=== PATIENT | female | born 1930 | race Caucasian/White ===

== ENCOUNTER 2018-03-24 14:58 | Inpatient (IN) | payer OTHER ==
[2018-03-24] MEDS ORDERED: SODIUM CHLORIDE 2,177 ML IV ONE (15:35)
[2018-03-24 16:41] LABS: BASO % 0.7 % (0-2.0); HEMATOCRIT 34.9 % (32.4-45.2); HEMOGLOBIN 11.8 GM/dL (10.7-15.3); LYMPH % 11.5 % (8-40); MCH 29.1 pg (25.7-33.7); MCHC 33.8 g/dl (32.0-36.0); MEAN CELL VOLUME 86.1 fl (80-96); MEAN PLT VOLUME 9.6 fl (7.5-11.1); MONO % 8.7 % (3.8-10.2); NEUT % 76.1 % (42.8-82.8); PLATELET COUNT 327 K/MM3 (134-434); RBC 4.05 M/mm3 (3.60-5.2); WHITE BLOOD COUNT 11.9 K/mm3 (4.0-10.0)
--- NOTE | 2018-03-24 16:45 | PDOC ---
History of Present Illness - General Chief Complaint: Nasal Bleeding Stated Complaint: Nasal Bleeding Time Seen by Provider: 03/24/18 15:25 - History of Present Illness Initial Comments: 03/24/18 16:36 87 yo F with h/o HTN, HLD, DM, ACS, R femoral neck fracture, DVT LE on AC, BIBA with epistaxis from [facility]. Patient with epistaxis intermittently beginning today at 0900 AM. Denies trauma to nose. Blood from both nose, with slight clotting, and down back of throat/mouth. No identifiable triggers. Not alleviated with manual pressure. Per patient daughter and son at bedside. Patient currently undergoing rehabilitation s/p mechanical fall with right femoral neck fracture x 1 month ago. S/p surgical right hip repair x 1 week at OSH. Patient recently started new AC, but does not recall name x 1 week. No home O2 requirements. Son reports patient hypoxic while in hospital x 2 weeks. Discontinued from Warfarin x 6 months ago. Started on Xarelto (09/2017) .On Xarelto 20 mg QD. Patient denies cough, wheezing, hemoptysis, PND, orthopnea, leg pain, N/V, F,C, CP, urinary complaints, abdominal pain, diarrhea, constipation, lightheadedness , weakness, sensory changes. PMHx: as noted above. Denies h/o PE. ROS: as noted SHx: Denies Etoh, IVDA, tobacco. Allergies: NKDA Past History - Past Medical History Allergies/Adverse Reactions: Allergies Allergy/AdvReac Type Severity Reaction Status Date / Time No Known Allergies Allergy Verified 03/24/18 15:24 Home Medications: Ambulatory Orders Acetaminophen [Tylenol] 650 mg PO Q6H PRN 03/24/18 Amlodipine Besylate [Norvasc -] 10 mg PO DAILY 03/24/18 Ascorbic Acid [Vitamin C] 500 mg PO DAILY 03/24/18 Calcium Carbonate/Vitamin D3 [Calcium 500 + Vit D 200 Caplet] 1 each PO DAILY Docusate Sodium [Colace] 300 mg PO HS 03/24/18 Losartan Potassium [Cozaar] 100 mg PO DAILY 03/24/18 Magnesium Hydroxide [Milk of Magnesia] 302 ml PO DAILY PRN 03/24/18 Multivitamins [Tab-A-Vit -] 1 tab PO DAILY 03/24/18 Oxycodone HCl/Acetaminophen [Percocet 5-325 mg Tablet] 1 tab PO Q4H PRN Rivaroxaban [Xarelto -] 20 mg PO DAILY 03/24/18 Sennosides [Senna] 8.6 mg PO HS 03/24/18 Silver Sulfadiazine 1% Top Cr [Silvadene -] 1 applic TP BID 03/24/18 Simvastatin [Zocor -] 20 mg PO HS 03/24/18 Tramadol HCl 50 mg PO Q6H PRN 03/24/18 Zinc Sulfate [Zinc-220] 220 mg PO DAILY 03/24/18 metFORMIN HCL [Glucophage -] 850 mg PO DAILY 03/24/18 COPD: No Diabetes: Yes HTN: Yes Hypercholesterolemia: Yes - Suicide/Smoking/Psychosocial Hx Smoking History: Never smoked Review of Systems - Review of Systems Comments:: 03/24/18 16:46 GENERAL/CONSTITUTIONAL: No fever or chills. No weakness. HEAD, EYES, EARS, NOSE AND THROAT: + Epistaxis. No change in vision. No ear pain or discharge. No sore throat. CARDIOVASCULAR: + SOB. No chest pain. RESPIRATORY: No cough, wheezing, or hemoptysis. GASTROINTESTINAL: No nausea, vomiting, diarrhea or constipation. GENITOURINARY: No dysuria, frequency, or change in urination. MUSCULOSKELETAL: No joint or muscle swelling or pain. No neck or back pain. SKIN: No rash NEUROLOGIC: No headache, vertigo, loss of consciousness, or change in strength/ sensation. ENDOCRINE: No increased thirst. No abnormal weight change HEMATOLOGIC/LYMPHATIC: No anemia, easy bleeding, or history of blood clots. ALLERGIC/IMMUNOLOGIC: No hives or skin allergy. *Physical Exam - Vital Signs Last Vital Signs Temp Pulse Resp BP Pulse Ox 98.0 F 115 H 20 98/59 L 90 L 03/24/18 15:21 03/24/18 15:21 03/24/18 15:21 03/24/18 15:21 03/24/18 15:21 - Physical Exam Comments: 03/24/18 16:49 GENERAL: Awake, alert, and fully oriented, in no acute distress HEAD: No signs of trauma, normocephalic, atraumatic EYES: PERRLA, EOMI, sclera anicteric, conjunctiva clear ENT: + Active blood BL nares, and post. orppharynx. Absent septal deviation, or hematoma. Auricles normal inspection, hearing grossly normal, nares patent, oropharynx clear without exudates. Moist mucosa NECK: Normal ROM, supple, no lymphadenopathy, JVD, or masses LUNGS:+ Diminished lung sound BL LL bases. No distress, speaks full sentences. + scant exp wheezing. HEART: Regular rate and rhythm, normal S1 and S2, no murmurs, rubs or gallops, peripheral pulses normal and equal bilaterally. ABDOMEN: Soft, nontender, normoactive bowel sounds. No guarding, no rebound. No masses EXTREMITIES : + BL LE 2 + pitting edema. Normal inspection, Normal range of motion, no edema. No clubbing or cyanosis. SKIN: Warm, Dry, normal turgor, no rashes or lesions noted ED Treatment Course - LABORATORY CBC & Chemistry Diagram: 03/24/18 16:28 03/24/18 16:28 Medical Decision Making - Medical Decision Making 03/24/18 16:45 87 yo F with h/o HTN, HLD, DM, ACS, DVT LE on AC, BIBA with epistaxis from [facility]. HR 115, BP 98/59, O2 90 L 5 L NC, AF. A&Ox3. + Diminished lung sounds BL Lung bases. /AR r/o. R/o PNA. R/o PTX. Patient high risk PE based on Weils criteria immobilization/surgery/hypoxia,tachycardia/h/o DVT. Will consider CHF, COPD. Assess for electrolyte abnml, metabolic, and toxic derangement, acid-base disturbances, infection. ED Course: 03/24/18 16:50 NS 20 cc/kg Patient SBP improved 105/54 ( MAP 67), with HR 90, and O2 99% on 10 L NRB 03/24/18 16:52 H/H: 11.8/34.9 WBC: 11.9 03/24/18 17:08 INR: 2.52 03/24/18 17:14 BUN/Cr: 24/0.8 Trop: Neg Lactic Acid: 3.3 03/24/18 17:15 pH; 7.35, PCO2 47.8 03/24/18 17:32 CTA CHEST: No evidence of PE. Unremarkable Admit to Medicine Dr. Ifudu. Patient endorsed to medicine team. *DC/Admit/Observation/Transfer Diagnosis at time of Disposition: Hypoxia, Sepsis - Discharge Dispostion Decision to Admit order: Yes - Referrals Referrals: Lisa Camara [Primary Care Provider] - - Patient Instructions - Post Discharge Activity
[2018-03-24 16:52] LABS: INR 2.52 (0.83-1.09)
[2018-03-24 16:57] LABS: VENOUS PC02 47.8 mmHg (38-52); VENOUS PH 7.35 (7.32-7.42); VENOUS PO2 38.6 mmHg (28-48)
[2018-03-24 17:03] LABS: ALBUMIN 2.9 g/dl (3.4-5.0); ALK PHOS 72 U/L (45-117); ANION GAP 10 MMOL/L (8-16); BILIRUBIN,TOTAL 1.2 mg/dL (0.2-1); BLOOD UREA NITROGEN 24 mg/dL (7-18); CALCIUM 8.1 mg/dL (8.5-10.1); CHLORIDE 99 mmol/L (98-107); CO2 27 mmol/L (21-32); CREATININE 0.8 mg/dL (0.55-1.3); GLUCOSE,RANDOM 131 mg/dL (74-106); POTASSIUM 4.1 mmol/L (3.5-5.1); SGOT/AST 24 U/L (15-37); SGPT/ALT 38 U/L (13-61); SODIUM 137 mmol/L (136-145); TOT PROT 6.1 g/dl (6.4-8.2)
[2018-03-24] MEDS ORDERED: PIPERACILLIN/TAZOB 4.5 GM 4.5 GM in DEXTROSE 5%-WATER 100 ML IVPB ONE (18:56)
--- NOTE | 2018-03-24 19:11 | PDOC ---
Attending Attestation - Resident Resident Name: Jhon Lowe - ED Attending Attestation I have performed the following: I have examined & evaluated the patient, The case was reviewed & discussed with the resident, I agree w/resident's findings & plan, Exceptions are as noted - HPI HPI: 03/24/18 19:12 The patient is a 87 year old female, with a significant past medical history of hypertension, diabetes, hyperlipidemia, DVTs on Anticoagulation, and Right Hip Fx s/p repair about 1 week ago, who presents to the emergency department with epistaxis since 9am. She was notably tachycardic, hypotensive and hypoxic in route as per EMS. The patient denies home O2 requirements, but reports recent hypoxia on admission to [facility]. She states she has been in a rehab for about a week since her R Hip surgery. She also reportedly has been taking Xarelto since September, discontinued for surgery, and restarted on a new anticoagulation which the family does not know the name. Per [facility] records, she is on xarelto. The patient denies chest pain, shortness of breath, headache and dizziness. The patient denies fever, chills, nausea, vomit, diarrhea and constipation. The patient denies dysuria, frequency, urgency and hematuria. - Physicial Exam PE: 03/25/18 09:36 agree with resident exam - Medical Decision Making 03/24/18 19:49 87yo F with MMP including recent hip surgery, is on xarelto presents to the ED with epistaxis, also found to be hypotenisve, tachycardic, hypoxic. Vital abnormalities could be 2/2 epistaxis, but given recent surgery could also represent infection. Epistaxis is intermittent while here in the ED, made device for compression but family removed, stating they will hold pressure for the patient. Pt covered empirically with IV abx. Given gap in AC for recent procedure, CTA obtained which was negative. At this point, pt admitted for further mgmt. Case discussed in detail with admitting physician including history, physical exam and ancillary studies. Admitting physician has assumed care for the patient, will follow all pending diagnostics and will complete the evaluation and treatment.
[2018-03-24] MEDS ORDERED: VANCOMYCIN 1,000 MG in DEXTROSE 5%-WATER - 250 ML IVPB ONE (19:28)
--- NOTE | 2018-03-24 19:54 | PN ---
Teaching Attending Note Name of Resident: Zaid Chandler ATTENDING PHYSICIAN STATEMENT I saw and evaluated the patient. I reviewed the resident's note and discussed the case with the resident. I agree with the resident's findings and plan as documented. SUBJECTIVE: Patient is an 87 year old woman with history of HTN, HLD, DM, ACS, Rt femoral neck fracture, DVT LE on Xarelto who from [facility] with epistaxis intermittently beginning today at 0900 AM. Denies trauma to nose. Blood from both nostrils with slight clotting, and down back of throat/mouth. No identifiable triggers. Not alleviated with manual pressure. Per patient daughter and son at bedside. Patient currently undergoing rehabilitation after mechanical fall with right femoral neck fracture one month ago. Had surgical right hip repair x 1 week at OSH. Son reports patient hypoxic while in hospital x 2 weeks. Discontinued from Warfarin x 6 months ago. Started on Xarelto (2017). On Xarelto 20 mg QD. OBJECTIVE: Alert and weak Vital Signs Period Temp Pulse Resp BP Sys/Khan Pulse Ox Last 24 Hr 98.0 F 115 20 98/59 90 HEENT: No Jaundice, eye redness or discharge, PERRLA, EOMI. Normocephalic, atraumatic. External ears are normal and hearing is grossly intact. Nose packed. No nasal discharge or active bleeding. Neck: Supple, nontender. No palpable adenopathy or thyromegaly. No JVD Chest: Good effort. Clear to auscultation and percussion. Heart: Regular. No S3, rub or murmur Abdomen: Distended, soft, nontender and no HSM. Tympanic. No rebound or guarding. Normoactive bowel sounds. Ext: Peripheral pulses intact. No leg edema. Skin: Warm and dry. No petechiae, rash or ecchymosis. Neuro: Alert. Oriented to person and place. Frail and weak. CN 2-12 grossly intact. Sensation grossly intact in all four extremities and DTR are symmetric. Current Medications Generic Name Dose Route Start Last Admin Trade Name Freq PRN Reason Stop Dose Admin Vancomycin HCl 1,000 mg/ 250 mls @ 250 mls/hr 03/24/18 19:28 Dextrose IVPB 03/24/18 20:27 ONCE ONE Protocol Home Medications Medication Instructions Recorded Acetaminophen [Tylenol] 650 mg PO Q6H PRN 03/24/18 Amlodipine Besylate [Norvasc -] 10 mg PO DAILY 03/24/18 Ascorbic Acid [Vitamin C] 500 mg PO DAILY 03/24/18 Calcium Carbonate/Vitamin D3 1 each PO DAILY 03/24/18 [Calcium 500 + Vit D 200 Caplet] Docusate Sodium [Colace] 300 mg PO HS 03/24/18 Losartan Potassium [Cozaar] 100 mg PO DAILY 03/24/18 Magnesium Hydroxide [Milk of 302 ml PO DAILY PRN 03/24/18 Magnesia] Multivitamins [Tab-A-Vit -] 1 tab PO DAILY 03/24/18 Oxycodone HCl/Acetaminophen 1 tab PO Q4H PRN 03/24/18 [Percocet 5-325 mg Tablet] Rivaroxaban [Xarelto -] 20 mg PO DAILY 03/24/18 Sennosides [Senna] 8.6 mg PO HS 03/24/18 Silver Sulfadiazine 1% Top Cr 1 applic TP BID 03/24/18 [Silvadene -] Simvastatin [Zocor -] 20 mg PO HS 03/24/18 Tramadol HCl 50 mg PO Q6H PRN 03/24/18 Zinc Sulfate [Zinc-220] 220 mg PO DAILY 03/24/18 metFORMIN HCL [Glucophage -] 850 mg PO DAILY 03/24/18 Abnormal Lab Results 03/24/18 03/24/18 03/24/18 16:28 16:28 16:28 WBC 11.9 H Absolute Neuts (auto) 9.1 H PT with INR 30.00 H INR 2.52 H Mixed VBG HCO3 BUN 24 H Random Glucose 131 H Lactic Acid Calcium 8.1 L Total Bilirubin 1.2 H Total Protein 6.1 L Albumin 2.9 L 03/24/18 03/24/18 16:28 16:28 WBC Absolute Neuts (auto) PT with INR INR Mixed VBG HCO3 25.9 H BUN Random Glucose Lactic Acid 3.3 H* Calcium Total Bilirubin Total Protein Albumin ASSESSMENT AND PLAN: 1. Sepsis/Epistaxis - Though lactic acidosis may be partly due to Metformin - this and other clinical features suggest sepsis of unclear source. Initial hypoxia and hypotension responded to therapy. No embolism seen on CTPA. She got IV vancomycin in the ER. Will do sepsis work up - UA, BC, CXR and get abdominal sonogram to evaluate abdominal distension. Stop metformin, hydrate with IV D5/ LR and trend lactic acid. Will decide on adding zosyn once sepsis work up is done. Consult ENT for epistaxis and hold Xarelto. Reevaluate nasal packing tomorrow. 2. Hypoalbuminemia - Possibly due to combined effects of malnutrition and inflammation associated with comorbid chronic conditions. Will ensure adequate dietary protein intake and also consult blast furnace helper. 3. DM - For now, we will hold the home diabetes drugs and implement sliding scale insulin regimen. Provide comprehensive diabetes care with patient teaching and counseling about the importance of euglycemia, eye care and foot care. 4. DVT prophylaxis - SCD, TEDs. Xarelto on hold. 5. Advance directives - Full code
[2018-03-24] MEDS ORDERED: PIPERACILLIN/TAZOB 4.5 GM 4.5 GM/100 ML BAG IVPB ONE (20:13)
[2018-03-24] MEDS ORDERED: VANCOMYCIN 1 GRAM (PRE-DOCKED) 1,000 MG/250 ML BAG IVPB ONE (20:14)
--- NOTE | 2018-03-24 21:37 | HP ---
CHIEF COMPLAINT: epistaxis, dyspnea PCP: Lisa Camara HISTORY OF PRESENT ILLNESS: Patient is an 87 y/o F w/ PMHx HTN, HLD, DM, ACS, R femoral neck Fx 1 week s/p surgical repair, DVT on AC, was BIBEMS from [facility] where she was recovering from hip fracture surgery c/o of copious b/l epistaxis filling 2 quart-sized plastic bags with blood, additionally had episode of vomiting blood. Epistaxis was spontaneous and not associated with any trauma. Only manual pressure attempted to control bleeding and did not succeed. Of note, Pt switched from long-term use of warfarin to Xarelto September 2017, AC was held prior to surgery, per Pt's family Pt was started on new unknown AC following surgery but records from [facility] state Xarelto has been used throughout. Pt denies cough , wheezing, hemoptysis, PND, orthopnea, leg pain, N/V, F,C, CP, urinary complaints, abdominal pain, diarrhea, constipation, lightheadedness, weakness, sensory changes.On presentation was tachycardic 110s-120s, hypotensive, and desaturing to mid-70% on RA. Additionally had elevated lactate to 3.3, WBC slightly elevated to 11.9, afebrile throughout, INR 2.52. In ED, 2L fluid bolus corrected hypotension, saturation was brought to mid-90s with nasal cannula and non-rebreather, Pt is currently on NC. Hemostasis through manual pressure was achieved in ED. Empiric vancomycin and zosyn were given. CTA chest showed no PE or acute pathology but was noted to be a limited study. EKG was unremarkable. UA , UCx, BCx, CXR pending. ER course was notable for: (1) lactate 3.3, INR 2.52 (2) hypotension (3) hypoxia Recent Travel: PAST MEDICAL HISTORY: As per HPI PAST SURGICAL HISTORY: As per HPI Social History: Smoking: Alcohol: Drugs: Family History: Allergies No Known Allergies Allergy (Verified 03/24/18 15:24) HOME MEDICATIONS: Home Medications Medication Instructions Recorded Acetaminophen [Tylenol] 650 mg PO Q6H PRN 03/24/18 Amlodipine Besylate [Norvasc -] 10 mg PO DAILY 03/24/18 Ascorbic Acid [Vitamin C] 500 mg PO DAILY 03/24/18 Calcium Carbonate/Vitamin D3 1 each PO DAILY 03/24/18 [Calcium 500 + Vit D 200 Caplet] Docusate Sodium [Colace] 300 mg PO HS 03/24/18 Losartan Potassium [Cozaar] 100 mg PO DAILY 03/24/18 Magnesium Hydroxide [Milk of 302 ml PO DAILY PRN 03/24/18 Magnesia] Multivitamins [Tab-A-Vit -] 1 tab PO DAILY 03/24/18 Oxycodone HCl/Acetaminophen 1 tab PO Q4H PRN 03/24/18 [Percocet 5-325 mg Tablet] Rivaroxaban [Xarelto -] 20 mg PO DAILY 03/24/18 Sennosides [Senna] 8.6 mg PO HS 03/24/18 Silver Sulfadiazine 1% Top Cr 1 applic TP BID 03/24/18 [Silvadene -] Simvastatin [Zocor -] 20 mg PO HS 03/24/18 Tramadol HCl 50 mg PO Q6H PRN 03/24/18 Zinc Sulfate [Zinc-220] 220 mg PO DAILY 03/24/18 metFORMIN HCL [Glucophage -] 850 mg PO DAILY 03/24/18 REVIEW OF SYSTEMS As per HPI PHYSICAL EXAMINATION Vital Signs - 24 hr 03/24/18 15:21 Temperature 98.0 F Pulse Rate 115 H Respiratory 20 Rate Blood Pressure 98/59 L O2 Sat by Pulse 90 L Oximetry (%) GENERAL: Awake, alert, oriented only to name (family states this is baseline). HEAD: NC/AT EYES: PERRLA, scleral icterus, limited compliance otherwise EARS, NOSE, THROAT: no active bleeding, numerous clots throughout nares b/l and posterior oropharynx. MMM. NECK: No JVD, no LAD LUNGS: crackles at lung bases b/l HEART: RRR no m/r/g ABDOMEN: distant bs, soft, nontender, notably distended (of recent onset per family), tympanitic EXTREMITIES: 2+ pulses, warm, well-perfused. No cyanosis. No clubbing. 2+ pitting edema b/l [place]. NEUROLOGICAL: limited compliance, no gross motor, sensor, or CN deficits PSYCHIATRIC: pleasant, confused Laboratory Results - last 24 hr 03/24/18 03/24/18 03/24/18 16:28 16:28 16:28 WBC 11.9 H RBC 4.05 Hgb 11.8 Hct 34.9 MCV 86.1 MCH 29.1 MCHC 33.8 RDW 15.0 Plt Count 327 MPV 9.6 Absolute Neuts (auto) 9.1 H Neutrophils % 76.1 Lymphocytes % 11.5 Monocytes % 8.7 Eosinophils % 3.0 Basophils % 0.7 Nucleated RBC % 0 PT with INR 30.00 H INR 2.52 H VBG pH POC VBG pCO2 POC VBG pO2 Mixed VBG HCO3 Sodium 137 Potassium 4.1 Chloride 99 Carbon Dioxide 27 Anion Gap 10 BUN 24 H Creatinine 0.8 Creat Clearance w eGFR > 60 Random Glucose 131 H Lactic Acid Calcium 8.1 L Total Bilirubin 1.2 H AST 24 ALT 38 Alkaline Phosphatase 72 Creatine Kinase Troponin I Total Protein 6.1 L Albumin 2.9 L Blood Type Antibody Screen 03/24/18 03/24/18 03/24/18 16:28 16:28 16:28 WBC RBC Hgb Hct MCV MCH MCHC RDW Plt Count MPV Absolute Neuts (auto) Neutrophils % Lymphocytes % Monocytes % Eosinophils % Basophils % Nucleated RBC % PT with INR INR VBG pH 7.35 POC VBG pCO2 47.8 POC VBG pO2 38.6 Mixed VBG HCO3 25.9 H Sodium Potassium Chloride Carbon Dioxide Anion Gap BUN Creatinine Creat Clearance w eGFR Random Glucose Lactic Acid 3.3 H* Calcium Total Bilirubin AST ALT Alkaline Phosphatase Creatine Kinase Troponin I Total Protein Albumin Blood Type O NEGATIVE Antibody Screen Negative 03/24/18 16:28 WBC RBC Hgb Hct MCV MCH MCHC RDW Plt Count MPV Absolute Neuts (auto) Neutrophils % Lymphocytes % Monocytes % Eosinophils % Basophils % Nucleated RBC % PT with INR INR VBG pH POC VBG pCO2 POC VBG pO2 Mixed VBG HCO3 Sodium Potassium Chloride Carbon Dioxide Anion Gap BUN Creatinine Creat Clearance w eGFR Random Glucose Lactic Acid Calcium Total Bilirubin AST ALT Alkaline Phosphatase Creatine Kinase 56 Troponin I < 0.02 Total Protein Albumin Blood Type Antibody Screen ASSESSMENT/PLAN: 87 y/o F w/ PMHx HTN, HLD, DM, ACS, R femoral neck Fx 1 week s/p surgical repair , DVT on AC p/w 1 day h/o copious epistaxis, additionally developed dyspnea, hypoxia, hypotension on presentation. #hypoxia/hypotension -PE vs sepsis -CTA negative -cont NC to maintain O2 sat >92 -consider V/Q scan given PE risk factors and limitations of CTA -troponin negative -currently hemodynamically stable, further fluid boluses as needed -initial troponin negative, will repeat x 2, EKG unremarkable -CXR pending -UCx, UA, BCx pending -empiric vanc/zosyn given #lactic acidosis -may be 2/2 metformin -repeat lactate pending #HTN -hold anti-hypertensives #DM -hold metformin -BGM ACHS -SSI #FEN -no IVF -monitor and replete -NPO #PPx -DVT: Xarelto -GI: not indicated #code -full #dispo -admit to med/surg Visit type - Emergency Visit Emergency Visit: Yes Care time: The patient presented to the Emergency Department on the above date and was hospitalized for further evaluation of their emergent condition. - New Patient This patient is new to me today: Yes Date on this admission: 03/24/18 - Critical Care Critical Care patient: No
[2018-03-24] MEDS ORDERED: ONDANSETRON 4 MG/2 ML VIAL IVPB ONE (22:03)
[2018-03-24 22:52] LABS: MAGNESIUM 1.7 mg/dL (1.8-2.4); PHOSPHOROUS 3.2 mg/dL (2.5-4.9)
[2018-03-24] MEDS ORDERED: MAGNESIUM SULF 50% (8.12 MEQ/2 ML-1 GM VIAL) IVPB ONE (23:15)
[2018-03-24] MEDS ORDERED: ONDANSETRON 4 MG/2 ML VIAL ONE (23:16)
[2018-03-24] MEDS ORDERED: INSULIN (NOVOLOG) ASPART 100 UNITS/ML 10ML VIAL ONE (23:17)
[2018-03-24 23:21] LABS: URINE APPEARANCE CLEAR; URINE BILIRUBIN NEGATIVE (<2.0 mg/dL); URINE COLOR YELLOW; URINE GLUCOSE (UA) NEGATIVE (NEGATIVE); URINE KETONE NEGATIVE (NEGATIVE); URINE LEUK ESTERASE NEGATIVE (NEGATIVE); URINE NITRITE NEGATIVE (NEGATIVE); URINE PROTEIN NEGATIVE (NEGATIVE); URINE UROBILINOGEN NEGATIVE mg/dL (0.2-1.0)
[2018-03-24] MEDS: INSULIN SLIDING SCALE (NOVOLOG) 1 VIAL SQ SCH (23:22)
[2018-03-24] MEDS ORDERED: MAGNESIUM SULF 50% (8.12 MEQ/2 ML-1 GM VIAL) ONE (23:27)
[2018-03-24] MEDS: DEXTROSE 5%-LACTATED RINGERS 1,000 ML IV SCH (23:37)
[2018-03-25] MEDS ORDERED: ACETAMINOPHEN 325 MG TABLET (FP) PO ONE (04:22)
[2018-03-25] MEDS ORDERED: ACETAMINOPHEN 1000 MG/100 ML VIAL (NON FORMULARY) IVPB ONE (04:46)
[2018-03-25 06:43] VITALS: BMI 29.8
[2018-03-25] MEDS: INSULIN SLIDING SCALE (NOVOLOG) 1 VIAL SQ SCH ×4 (07:00→21:30)
[2018-03-25 07:36] LABS: BASO % 0.6 % (0-2.0); EOS % 3.1 % (0-4.5); HEMOGLOBIN 8.1 GM/dL (10.7-15.3); LYMPH % 16.9 % (8-40); MCH 27.9 pg (25.7-33.7); MCHC 32.4 g/dl (32.0-36.0); MEAN CELL VOLUME 86.3 fl (80-96); MONO % 11.2 % (3.8-10.2); NEUT % 68.2 % (42.8-82.8); PLATELET COUNT 215 K/MM3 (134-434); RBC 2.89 M/mm3 (3.60-5.2); RDW 14.6 % (11.6-15.6); WHITE BLOOD COUNT 9.2 K/mm3 (4.0-10.0)
[2018-03-25 08:48] LABS: BLOOD UREA NITROGEN 27 mg/dL (7-18); CHLORIDE 104 mmol/L (98-107); CREATININE 0.5 mg/dL (0.55-1.3); GLUCOSE,RANDOM 115 mg/dL (74-106); SODIUM 139 mmol/L (136-145)
[2018-03-25 08:49] LABS: ALBUMIN 2.2 g/dl (3.4-5.0); ALK PHOS 47 U/L (45-117); ANION GAP 8 MMOL/L (8-16); BILIRUBIN,TOTAL 0.8 mg/dL (0.2-1); CALCIUM 7.8 mg/dL (8.5-10.1); CO2 27 mmol/L (21-32); MAGNESIUM 2.2 mg/dL (1.8-2.4); PHOSPHOROUS 2.8 mg/dL (2.5-4.9); SGOT/AST 18 U/L (15-37); SGPT/ALT 27 U/L (13-61); TOT PROT 4.6 g/dl (6.4-8.2)
[2018-03-25] MEDS ORDERED: RIVAROXABAN 20 MG TABLET PO SCH ×2 (10:00→18:00)
--- NOTE | 2018-03-25 11:43 | PN ---
Progress Note, Physician Chief Complaint: daughter at bedside events noted, chart reviewed Pt has difficulty swallowing due to rhino-rocket no sore throat - Current Medication List Current Medications: Active Medications Dextrose/Lactated Ringer's (D5-Lr -) 1,000 mls @ 50 mls/hr IV ASD[facility] Last Admin: 03/24/18 23:37 Dose: 50 mls/hr Insulin Aspart (Novolog Vial Sliding Scale -) 1 vial SQ ACHS [facility]; Protocol Last Admin: 03/25/18 07:00 Dose: Not Given - Objective Vital Signs: Vital Signs Temperature 98 F 03/25/18 06:03 Pulse Rate 92 H 03/25/18 06:03 Respiratory Rate 20 03/25/18 06:03 Blood Pressure 130/62 03/25/18 06:03 O2 Sat by Pulse Oximetry (%) 97 03/25/18 06:03 Constitutional: Yes: No Distress, Calm HENT: Yes: Other (dried blood in posterior pharynx, rhinorocket) Cardiovascular: Yes: Regular Rate and Rhythm Respiratory: Yes: CTA Bilaterally Gastrointestinal: Yes: Normal Bowel Sounds, Soft. No: Tenderness Extremities: Yes: Other (rt hip-- surgical wound noted-- clean , surrounding skin abrasions) Edema: Yes Edema: RLE: 2+ Neurological: Yes: Alert Labs: CBC, BMP 03/25/18 06:30 03/25/18 06:30 INR, PTT INR 2.52 (0.83-1.09) H 03/24/18 16:28 Problem List - Problems (1) Epistaxis Code(s): R04.0 - EPISTAXIS (2) Hip fracture Code(s): S72.009A - FRACTURE OF UNSP PART OF NECK OF UNSP FEMUR, INIT Qualifiers: Laterality: right (3) Hypoxia Code(s): R09.02 - HYPOXEMIA Assessment/Plan PLAN spontaneous epistaxis hold off xarelto for now ENT eval iv fluids Check CBC Swallow eval check sono legs may need SCD for dvt prophylaxis
--- NOTE | 2018-03-25 15:42 | EKG ---
Test Reason : Blood Pressure : / mmHG Vent. Rate : 097 BPM Atrial Rate : 097 BPM P-R Int : 168 ms QRS Dur : 084 ms QT Int : 344 ms P-R-T Axes : 065 052 049 degrees QTc Int : 436 ms NORMAL SINUS RHYTHM MINIMAL VOLTAGE CRITERIA FOR LVH, MAY BE NORMAL VARIANT BORDERLINE ECG NO PREVIOUS ECGS AVAILABLE Confirmed by JULIO BELTRAN MD ([id number]) on 03/25/2018 3:42:14 PM Referred By: Confirmed By:JULIO BELTRAN MD
--- NOTE | 2018-03-25 17:40 | CONSULT ---
Admitting History and Physical - Primary Care Physician PCP: Aleena Kirby - Admission History of Present Illness: 87 y/o F w/ PMHx HTN, HLD, DM, ACS, R femoral neck Fx 1 week s/p surgical repair , DVT on AC p/w 1 day h/o copious epistaxis, additionally developed dyspnea, hypoxia, hypotension on presentation Rhino-rocket placed in nasal cavity to control bleeding. Since it was placed, pt c/o difficulty swallowing, and speaking, with tongue carriage anterior. Rhino rocket in visible in posterior timothy-pharynx. Pt is on a non- rebreather.There are secretions in posterior pharynx, lateral to rhino-rocket.. She is oriented, speech is not intelligible with tongue in protruded position. Selected Entries 03/25/18 03/25/18 03/25/18 04:03 06:03 16:03 Lunch NPO Temperature 98.6 F 98 F 98.4 F Laboratory Tests 03/24/18 03/25/18 16:28 06:30 WBC 11.9 H 9.2 History Source: Patient, Family Member, Medical Record Limitations to Obtaining History: Clinical Condition - Smoking History Smoking history: Never smoked History - Admission Reason For Visit: HYPOXIA,SEPSIS - Diagnostics X-ray: Report Reviewed - General Mental Status: Alert and Oriented, Awake and Alert, Able to Follow Commands Attention: Intact Ability to Follow Directions: Good Head/Neck Control: WFL - Hearing Hearing: Impaired, Right Ear Hearing Aide: No Speech Evaluation - Communication Primary Language: MACEDONIAN - Speech Production Intelligibility: Yes: Severely Impaired - Swallow Evaluation/Bedside Assessment Current Nutritional Intake: NPO Oral Secretions: Yes: WFL (secretions in posterior pharynx.) Facial Symmetry at Rest: Symmetrical Lingual Movement: Symmetric Lingual Movement Characteristics: Normal Recommendations - Speech Evaluation, Impression/Plan Impression: Unintelligible speech, with tongue protruded, unable to swallow. Oriented. Rhinorocket visible in posterior timothy pharynx. On non rebreather. Per nursing, pt is stable. Pending ENT consult.No bleeding observed at this time. - Disposition Discharge to: To be Determined - Dysphagia Impressions/Plan Swallowing Skills: Impaired (suspect acute, related to position of naso-rocket.) *Silent aspiration: cannot be R/O at bedside Recommendations: ENT Consult (pending), Other (Careful monitoring of pulmonary status/o2 saturation) - Recommendations Diet Consistency: NPO
[2018-03-25] MEDS: BACITRACIN 15 GM TUBE TOPICAL OINTMENT TP SCH (17:59)
--- NOTE | 2018-03-25 19:33 | CON.ENT ---
Consult Consult Specialty:: ENT Referred by:: Dr. Lawrence Reason for Consultation:: epistaxis - History of Present Illness Chief Complaint: nasal bleeding History of Present Illness: 87 yo F s/p recent right hip fracture with surgical repair ~ 1 week ago hx deep vein thrombosis, had been on coumadin then Eliquis yesterday AM developed nasal bleeding left side (was in rehabilitation facility) , bleeding did not stop, pt swallowed a lot of blood then bleeding worsened, vomited blood clots paramedics called, to [facility] ER RhinoRocket nasal packing placed in left nostril Hemoglobin down 11.8 -> 8.1 Hematocrit down 34.9 -> 25.0 anticoagulated, INR and PT elevated (PT 30 seconds, INR 2.52) daughter in law noted pts voice sounds funny and she had problems swallowing. Swallowing evaluation by Vika Guido notes that part of the nasal packing is in pts oropharynx with obstruction. - History Source History Provided By: Patient, Family Member, Medical Record Limitations to Obtaining History: Language Barrier - Past Medical History Cardio/Vascular: Yes: Deep Vein Thrombosis - Smoking History Smoking history: Never smoked Home Medications - Allergies Allergies/Adverse Reactions: Allergies Allergy/AdvReac Type Severity Reaction Status Date / Time No Known Allergies Allergy Verified 03/24/18 15:24 - Home Medications Home Medications: Ambulatory Orders Acetaminophen [Tylenol] 650 mg PO Q6H PRN 03/24/18 Amlodipine Besylate [Norvasc -] 10 mg PO DAILY 03/24/18 Ascorbic Acid [Vitamin C] 500 mg PO DAILY 03/24/18 Calcium Carbonate/Vitamin D3 [Calcium 500 + Vit D 200 Caplet] 1 each PO DAILY Docusate Sodium [Colace] 300 mg PO HS 03/24/18 Losartan Potassium [Cozaar] 100 mg PO DAILY 03/24/18 Magnesium Hydroxide [Milk of Magnesia] 302 ml PO DAILY PRN 03/24/18 Multivitamins [Tab-A-Vit -] 1 tab PO DAILY 03/24/18 Oxycodone HCl/Acetaminophen [Percocet 5-325 mg Tablet] 1 tab PO Q4H PRN Rivaroxaban [Xarelto -] 20 mg PO DAILY 03/24/18 Sennosides [Senna] 8.6 mg PO HS 03/24/18 Silver Sulfadiazine 1% Top Cr [Silvadene -] 1 applic TP BID 03/24/18 Simvastatin [Zocor -] 20 mg PO HS 03/24/18 Tramadol HCl 50 mg PO Q6H PRN 03/24/18 Zinc Sulfate [Zinc-220] 220 mg PO DAILY 03/24/18 metFORMIN HCL [Glucophage -] 850 mg PO DAILY 03/24/18 Physical Exam-ENT Vital Signs: Vital Signs Temperature 98 F 03/25/18 17:00 Pulse Rate 85 03/25/18 17:00 Respiratory Rate 20 03/25/18 17:00 Blood Pressure 136/70 03/25/18 17:00 O2 Sat by Pulse Oximetry (%) 97 03/25/18 06:03 Constitutional: Yes: No Distress, Calm Head: Yes: WNL Face: Yes: WNL Eyes: Yes: WNL Nose: Yes: Other (left nasal packing in place, no active bleeding, no bleeding right nostril) Oral/Pharynx: Yes: Other (+oropharynx obstructed by distal end of inflatable nasal packing. NO bleeding into oropharynx , no stridor or respiratory distress , pt's voice has hot potato quality) Problem List - Problems (1) Epistaxis Assessment/Plan: severe epistaxis, complicated by need for anticoagulation for deep vein thrombosis pt is s/p very recent ORIF right hip fracture bleeding controlled by nasal packing, BUT nasal packing displaced into oropharynx with subsequent effects of partial airway obstruction, change in voice quality and trouble swallowing Bleeding was very active, pt has dropped hemoglobin and hematocrit,, PT and INR elevated Recommend: nasal packing repositioned, deflated, pulled out several centimeters, and re- secured with tape to face re-examination of oropharynx shows no more nasal packing visible in oropharynx. pt more comfortable, daughter in law notes improved voice quality. discussed with pt and her family. Advise continue nasal packing 18-72 hours, or longer if active nasal bleeding noted cover with antibiotics monitor H/H, transfuse as medically indicated close regulation of anticoagulation, needs for DVT but should not be too high because of active nasal bleeding. Thank you for consultation, Mamadou Washington MD FACS Code(s): R04.0 - EPISTAXIS
[2018-03-25] MEDS: DEXTROSE 5%-LACTATED RINGERS 1,000 ML IV SCH (21:57)
[2018-03-26] MEDS: INSULIN SLIDING SCALE (NOVOLOG) 1 VIAL SQ SCH ×4 (06:09→21:04)
[2018-03-26 08:18] LABS: HEMATOCRIT 25.6 % (32.4-45.2); HEMOGLOBIN 8.5 GM/dL (10.7-15.3); MCH 28.7 pg (25.7-33.7); MCHC 33.3 g/dl (32.0-36.0); MEAN CELL VOLUME 86.3 fl (80-96); MEAN PLT VOLUME 8.9 fl (7.5-11.1); PLATELET COUNT 239 K/MM3 (134-434); RBC 2.97 M/mm3 (3.60-5.2); RDW 14.5 % (11.6-15.6); WHITE BLOOD COUNT 7.2 K/mm3 (4.0-10.0)
[2018-03-26 08:34] LABS: ANION GAP 7 MMOL/L (8-16); BLOOD UREA NITROGEN 8 mg/dL (7-18); CALCIUM 7.6 mg/dL (8.5-10.1); CHLORIDE 105 mmol/L (98-107); CO2 31 mmol/L (21-32); CREATININE 0.4 mg/dL (0.55-1.3); GLUCOSE,RANDOM 93 mg/dL (74-106); POTASSIUM 4.3 mmol/L (3.5-5.1); SODIUM 143 mmol/L (136-145)
--- NOTE | 2018-03-26 09:55 | PN ---
Progress Note (short form) - Note Progress Note: Able to speak better and eat as well ENT eval noted Selected Entries 03/26/18 10:00 Temperature 97.3 F L Pulse Rate 62 Respiratory 20 Rate Blood Pressure 165/80 Laboratory Tests 03/26/18 03/26/18 06:30 06:30 WBC 7.2 Hgb 8.5 L Hct 25.6 L Plt Count 239 Sodium 143 Potassium 4.3 Chloride 105 Carbon Dioxide 31 Anion Gap 7 L BUN 8 Creatinine 0.4 L Random Glucose 93 Calcium 7.6 L S1 S2 RRR Nose-- left nostril-- rhinorocket + Lungs clear Abd- soft, NT No edema PLAN Monitor CBC humidified O2 continue with meds hold off anticoagulation on SCD Negative sono legs for DVT CTA chest - negative for PE Problem List - Problems (1) Epistaxis Code(s): R04.0 - EPISTAXIS (2) Hip fracture Code(s): S72.009A - FRACTURE OF UNSP PART OF NECK OF UNSP FEMUR, INIT Qualifiers: Laterality: right (3) Hypoxia Code(s): R09.02 - HYPOXEMIA
[2018-03-26] MEDS: BACITRACIN 15 GM TUBE TOPICAL OINTMENT TP SCH (10:25)
[2018-03-26] MEDS: DEXTROSE 5%-LACTATED RINGERS 1,000 ML IV SCH (19:00)
[2018-03-27] MEDS: INSULIN SLIDING SCALE (NOVOLOG) 1 VIAL SQ SCH ×4 (07:08→22:12)
[2018-03-27 07:53] LABS: HEMATOCRIT 25.3 % (32.4-45.2); HEMOGLOBIN 8.3 GM/dL (10.7-15.3); MCH 28.3 pg (25.7-33.7); MCHC 32.9 g/dl (32.0-36.0); MEAN CELL VOLUME 85.9 fl (80-96); MEAN PLT VOLUME 8.5 fl (7.5-11.1); PLATELET COUNT 223 K/MM3 (134-434); RBC 2.94 M/mm3 (3.60-5.2); RDW 14.2 % (11.6-15.6); WHITE BLOOD COUNT 7.3 K/mm3 (4.0-10.0)
[2018-03-27] MEDS: BACITRACIN 15 GM TUBE TOPICAL OINTMENT TP SCH (11:56)
--- NOTE | 2018-03-27 12:54 | PN ---
Progress Note (short form) - Note Progress Note: has blood oozing from left nostril + Vital Signs - 24 hr 03/26/18 03/26/18 03/26/18 18:05 21:00 22:00 Temperature 97.3 F L 97.8 F Pulse Rate 82 80 Respiratory 20 20 Rate Blood Pressure 131/71 129/71 O2 Sat by Pulse 100 Oximetry (%) 03/27/18 03/27/18 03/27/18 06:25 09:00 15:24 Temperature 98.4 F 98.3 F 98.1 F Pulse Rate 91 H 79 81 Respiratory 20 18 20 Rate Blood Pressure 121/56 L 123/61 126/75 O2 Sat by Pulse 100 Oximetry (%) 03/27/18 17:09 Temperature 98.1 F Pulse Rate 82 Respiratory 18 Rate Blood Pressure 121/54 L O2 Sat by Pulse Oximetry (%) Current Medications Generic Name Dose Route Start Last Admin Trade Name Freq PRN Reason Stop Dose Admin Bacitracin 1 applic 03/25/18 11:45 03/27/18 11:56 Bacitracin - TP 1 applic DAILY AMY Administration Dextrose/Lactated Ringer's 1,000 mls @ 50 mls/hr 03/24/18 22:45 03/26/18 19: 00 D5-Lr - IV 50 mls/hr ASDIR AMY Administration Insulin Aspart 1 vial 03/24/18 22:00 03/27/18 17:05 Novolog Vial Sliding Scale - SQ Not Given ACHS AMY Protocol Laboratory Results - last 24 hr 03/26/18 03/26/18 03/27/18 17:08 20:57 06:40 WBC 7.3 RBC 2.94 L Hgb 8.3 L Hct 25.3 L MCV 85.9 MCH 28.3 MCHC 32.9 RDW 14.2 Plt Count 223 MPV 8.5 POC Glucometer 124 122 03/27/18 03/27/18 07:06 12:11 WBC RBC Hgb Hct MCV MCH MCHC RDW Plt Count MPV POC Glucometer 112 127 S1 S2 RRR Nose-- left nostril-- rhinorocket +clots+ Lungs clear Abd- soft, NT edema+ PLAN Monitor CBC humidified O2 continue with meds hold off anticoagulation on SCD Negative sono legs for DVT CTA chest - negative for PE ENt to follow up Problem List - Problems (1) Epistaxis Code(s): R04.0 - EPISTAXIS (2) Hip fracture Code(s): S72.009A - FRACTURE OF UNSP PART OF NECK OF UNSP FEMUR, INIT Qualifiers: Laterality: right (3) Hypoxia Code(s): R09.02 - HYPOXEMIA
[2018-03-28] MEDS: INSULIN SLIDING SCALE (NOVOLOG) 1 VIAL SQ SCH ×2 (06:11→11:59)
[2018-03-28 08:21] LABS: HEMATOCRIT 24.1 % (32.4-45.2); MCH 28.4 pg (25.7-33.7); MCHC 33.1 g/dl (32.0-36.0); MEAN CELL VOLUME 85.6 fl (80-96); MEAN PLT VOLUME 8.8 fl (7.5-11.1); PLATELET COUNT 216 K/MM3 (134-434); RBC 2.82 M/mm3 (3.60-5.2); RDW 14.4 % (11.6-15.6); WHITE BLOOD COUNT 6.9 K/mm3 (4.0-10.0)
[2018-03-28 09:00] LABS: ANION GAP 7 MMOL/L (8-16); BLOOD UREA NITROGEN 10 mg/dL (7-18); CALCIUM 7.6 mg/dL (8.5-10.1); CHLORIDE 104 mmol/L (98-107); CO2 29 mmol/L (21-32); CREATININE 0.4 mg/dL (0.55-1.3); GLUCOSE,RANDOM 96 mg/dL (74-106); POTASSIUM 4.2 mmol/L (3.5-5.1); SODIUM 141 mmol/L (136-145)
[2018-03-28] MEDS: BACITRACIN 15 GM TUBE TOPICAL OINTMENT TP SCH (09:56)
[2018-03-28] MEDS: DEXTROSE 5%-LACTATED RINGERS 1,000 ML IV SCH (09:57)
[2018-03-28] MEDS ORDERED: INSULIN (NOVOLOG) ASPART 100 UNITS/ML 10ML VIAL ONE (11:24)
[2018-03-28] MEDS ORDERED: SODIUM CHLORIDE NASAL SPRAY 44 ML BOTTLE NS PRN (13:34)
--- NOTE | 2018-03-28 13:36 | PN ---
Progress Note (short form) - Note Progress Note: has blood oozing from left nostril + no distress no SOB Vital Signs - 24 hr 03/27/18 03/27/18 03/27/18 15:24 17:09 21:00 Temperature 98.1 F 98.1 F Pulse Rate 81 82 Respiratory 20 18 Rate Blood Pressure 126/75 121/54 L O2 Sat by Pulse 100 Oximetry (%) 03/27/18 03/28/18 03/28/18 22:18 05:52 09:00 Temperature 98.2 F 98 F Pulse Rate 83 76 Respiratory 18 18 20 Rate Blood Pressure 136/70 130/58 L O2 Sat by Pulse 99 Oximetry (%) 03/28/18 10:00 Temperature 97.7 F Pulse Rate 79 Respiratory 20 Rate Blood Pressure 137/76 O2 Sat by Pulse Oximetry (%) Current Medications Generic Name Dose Route Start Last Admin Trade Name Freq PRN Reason Stop Dose Admin Bacitracin 1 applic 03/25/18 11:45 03/28/18 09:56 Bacitracin - TP 1 applic DAILY AMY Administration Ceftriaxone Sodium 1,000 mg 03/28/18 13:45 Rocephin - IVPB DAILY AMY Insulin Aspart 1 vial 03/24/18 22:00 03/28/18 11:59 Novolog Vial Sliding Scale - SQ Not Given ACHS AMY Protocol Sodium Chloride 2 spray 03/28/18 13:34 [place] Nasal [place] - NS BID PRN NASAL CONGESTION Laboratory Results - last 24 hr 03/27/18 03/27/18 03/28/18 17:04 22:11 06:06 WBC RBC Hgb Hct MCV MCH MCHC RDW Plt Count MPV Sodium Potassium Chloride Carbon Dioxide Anion Gap BUN Creatinine Creat Clearance w eGFR POC Glucometer 110 139 116 Random Glucose Calcium 03/28/18 03/28/18 03/28/18 06:15 06:15 11:58 WBC 6.9 RBC 2.82 L Hgb 8.0 L Hct 24.1 L MCV 85.6 MCH 28.4 MCHC 33.1 RDW 14.4 Plt Count 216 MPV 8.8 Sodium 141 Potassium 4.2 Chloride 104 Carbon Dioxide 29 Anion Gap 7 L BUN 10 Creatinine 0.4 L Creat Clearance w eGFR > 60 POC Glucometer 122 Random Glucose 96 Calcium 7.6 L S1 S2 RRR Nose-- left nostril-- rhinorocket +clots+ Lungs clear Abd- soft, NT edema+ PLAN Monitor CBC humidified O2 continue with meds hold off anticoagulation on SCD Negative sono legs for DVT CTA chest - negative for PE ENt to follow up Problem List - Problems (1) Epistaxis Code(s): R04.0 - EPISTAXIS (2) Hip fracture Code(s): S72.009A - FRACTURE OF UNSP PART OF NECK OF UNSP FEMUR, INIT Qualifiers: Laterality: right (3) Hypoxia Code(s): R09.02 - HYPOXEMIA
[2018-03-28] MEDS ORDERED: cefTRIAXone SODIUM 1 GM VIAL ONE (15:19)
[2018-03-28] MEDS ORDERED: DEXTROSE 5%-WATER - 50 ML IVPB ONE (15:19)
[2018-03-28] MEDS: CEFTRIAXONE 1 GM in DEXTROSE 5%-WATER - 50 ML IVPB SCH (15:21)
[2018-03-29 08:43] LABS: HEMATOCRIT 24.5 % (32.4-45.2); HEMOGLOBIN 8.1 GM/dL (10.7-15.3); MCH 28.3 pg (25.7-33.7); MEAN CELL VOLUME 85.8 fl (80-96); MEAN PLT VOLUME 8.8 fl (7.5-11.1); PLATELET COUNT 229 K/MM3 (134-434); RBC 2.86 M/mm3 (3.60-5.2); RDW 14.6 % (11.6-15.6); WHITE BLOOD COUNT 8.1 K/mm3 (4.0-10.0)
[2018-03-29] MEDS ORDERED: cefTRIAXone SODIUM 1 GM VIAL ONE (09:35)
[2018-03-29] MEDS ORDERED: DEXTROSE 5%-WATER - 50 ML IVPB ONE (09:35)
[2018-03-29] MEDS: BACITRACIN 15 GM TUBE TOPICAL OINTMENT TP SCH (10:13)
[2018-03-29] MEDS: CEFTRIAXONE 1 GM in DEXTROSE 5%-WATER - 50 ML IVPB SCH (10:14)
--- NOTE | 2018-03-29 15:28 | PN ---
Progress Note, APPLICATION ARCHITECT - Note Progress Note: Selected Entries 03/29/18 03/29/18 03/29/18 06:00 10:00 12:06 Breakfast 75% Lunch Temperature 98.2 F 98.3 F 03/29/18 15:01 Breakfast Lunch 50% Temperature 98.1 F Laboratory Tests 03/29/18 08:00 WBC 8.1 RBC 2.86 L Hgb 8.1 L Hct 24.5 L Much improved since my last assessment. Appreciate ENT consult and improved placement of rhino-rocket. Upon reassessment, not visual in timothy-pharynx today. Speech normal/ swallowing seems intact. Pt still on non rebreather. Pt on Puree/honey thick liquid, which she dislikes. 3 oz water test (-). Swallow onset mildly delayed but overtly brisk. Suggest trial of reg chopped, tuna, egg salad, ch salad, and thin liquids.
--- NOTE | 2018-03-29 19:20 | PN ---
Progress Note (short form) - Note Progress Note: no bleeding no distress Vital Signs - 24 hr 03/28/18 03/28/18 03/29/18 21:00 22:00 06:00 Temperature 98.5 F 98.2 F Pulse Rate 84 82 Respiratory 20 20 20 Rate Blood Pressure 122/63 132/58 L O2 Sat by Pulse 100 Oximetry (%) 03/29/18 03/29/18 03/29/18 09:00 10:00 15:01 Temperature 98.3 F 98.1 F Pulse Rate 79 92 H Respiratory 18 18 Rate Blood Pressure 116/61 115/58 L O2 Sat by Pulse 100 Oximetry (%) 03/29/18 17:16 Temperature 98.5 F Pulse Rate 89 Respiratory 20 Rate Blood Pressure 130/71 O2 Sat by Pulse Oximetry (%) Current Medications Generic Name Dose Route Start Last Admin Trade Name Freq PRN Reason Stop Dose Admin Bacitracin 1 applic 03/25/18 11:45 03/29/18 10:13 Bacitracin - TP 1 applic DAILY AMY Administration Ceftriaxone Sodium 1 gm/ 50 mls @ 100 mls/hr 03/28/18 14:30 03/29/18 10:14 Dextrose IVPB 100 mls/hr DAILY AMY Administration Sodium Chloride 2 spray 03/28/18 13:34 [place] Nasal [place] - NS BID PRN NASAL CONGESTION Laboratory Results - last 24 hr 03/29/18 03/29/18 08:00 08:00 WBC 8.1 RBC 2.86 L Hgb 8.1 L Hct 24.5 L MCV 85.8 MCH 28.3 MCHC 33.0 RDW 14.6 Plt Count 229 MPV 8.8 Hemoglobin A1c % 6.0 S1 S2 RRR Nose-- left nostril-- rhinorocket +clots+ Lungs clear Abd- soft, NT edema+ PLAN Monitor CBC humidified O2 continue with meds hold off anticoagulation on SCD ENT- will follow up tomorrow to remove rhinorocket Negative sono legs for DVT CTA chest - negative for PE Problem List - Problems (1) Epistaxis Code(s): R04.0 - EPISTAXIS (2) Hip fracture Code(s): S72.009A - FRACTURE OF UNSP PART OF NECK OF UNSP FEMUR, INIT Qualifiers: Laterality: right (3) Hypoxia Code(s): R09.02 - HYPOXEMIA
[2018-03-29] MEDS ORDERED: traMADol HCL 50 MG TABLET PO ONE (22:30)
[2018-03-30 07:20] LABS: HEMATOCRIT 23.5 % (32.4-45.2); HEMOGLOBIN 8.2 GM/dL (10.7-15.3); MCH 29.6 pg (25.7-33.7); MCHC 34.8 g/dl (32.0-36.0); MEAN CELL VOLUME 85.1 fl (80-96); PLATELET COUNT 233 K/MM3 (134-434); RBC 2.76 M/mm3 (3.60-5.2); RDW 14.6 % (11.6-15.6); WHITE BLOOD COUNT 6.2 K/mm3 (4.0-10.0)
--- NOTE | 2018-03-30 10:44 | PN ---
Progress Note (short form) - Note Progress Note: pt seen/ examined chart reviewed awake/ comfortable packing in place Daughter - in - law at bedside denies pain Vital Signs Temp 97.6 F 03/30/18 06:21 Pulse 79 03/30/18 06:21 Resp 20 03/30/18 06:21 BP 115/60 03/30/18 06:21 Pulse Ox 100 03/29/18 21:00 Intake & Output 03/29/18 03/29/18 03/30/18 11:59 23:59 11:59 Intake Total 200 700 240 Balance 200 700 240 Intake: IVPB 100 Oral 100 700 240 Other: Voiding Method Toilet Toilet # Unmeasured Voids Void 2 1 Bowel Movement No Yes Active Medications Bacitracin (Bacitracin -) 1 applic TP DAILY [facility] Last Admin: 03/29/18 10:13 Dose: 1 applic Ceftriaxone Sodium 1 gm/ (Dextrose) 50 mls @ 100 mls/hr IVPB DAILY [facility] Last Admin: 03/29/18 10:14 Dose: 100 mls/hr Sodium Chloride ([place] Nasal [place] -) 2 spray NS BID PRN PRN Reason: NASAL CONGESTION CBC, BMP 03/30/18 06:30 03/28/18 06:15 Microbiology 03/24/18 09:17 Blood Culture - Final Blood - Peripheral Venous NO GROWTH AFTER 5 DAYS INCUBATION 03/24/18 09:30 Blood Culture - Final Blood - Peripheral Venous NO GROWTH AFTER 5 DAYS INCUBATION 03/24/18 20:19 Blood Culture - Final Blood - Peripheral Venous NO GROWTH AFTER 5 DAYS INCUBATION 03/24/18 20:19 Blood Culture - Final Blood - Peripheral Venous NO GROWTH AFTER 5 DAYS INCUBATION S1 S2 RRR Physical Exam. Nose-- left nostril-- rhinorocket + Lungs clear Abd- soft, NT cvs- s1, s2 rrr edema+ neuro- alert/ awake PLAN Monitor bleed humidified O2 continue with meds hold off anticoagulation on SCD ENT- will follow up today to remove rhinorocket Negative sono legs for DVT CTA chest - negative for PE if no bleeding - consider starting a/c tomorrow with caution discussed with pts family -- Family reports had h/o dvt 5-6 months ago-- not after recent surgery . will follow. Problem List - Problems (1) DVT (deep venous thrombosis) Code(s): I82.409 - ACUTE EMBOLISM AND THOMBOS UNSP DEEP VN UNSP LOWER EXTREMITY (2) Epistaxis Code(s): R04.0 - EPISTAXIS (3) Hip fracture Code(s): S72.009A - FRACTURE OF UNSP PART OF NECK OF UNSP FEMUR, INIT Qualifiers: Laterality: right
[2018-03-30] MEDS ORDERED: DEXTROSE 5%-WATER - 50 ML IVPB ONE (11:10)
[2018-03-30] MEDS ORDERED: cefTRIAXone SODIUM 1 GM VIAL ONE (11:10)
[2018-03-30] MEDS ORDERED: PT OWN MED DRAWER 7, Y5N ONE ×2 (11:12→11:40)
[2018-03-30] MEDS: CEFTRIAXONE 1 GM in DEXTROSE 5%-WATER - 50 ML IVPB SCH (11:15)
[2018-03-30] MEDS: BACITRACIN 15 GM TUBE TOPICAL OINTMENT TP SCH (11:16)
--- NOTE | 2018-03-30 19:14 | PN ---
Progress Note (short form) - Note Progress Note: ENT no further bleeding feeling better H/H remains low medical team plans to restart anticoagulation in morning PE NAD no active bleeding, packing in place oropharynx clear Impression: epistaxis, resolved Recommend: pack deflated but left in place if no further bleeding overnight then may remove packing and start anticoagulation if bleeding overnight then re-inflate packing pt had significant drop in hematocrit from 34.9 to 23.5. consider transfusion if medically indicated follow-up in office after discharge Mamadou Washington MD FACS Problem List - Problems (1) Epistaxis Code(s): R04.0 - EPISTAXIS
[2018-03-31] MEDS ORDERED: cefTRIAXone SODIUM 1 GM VIAL ONE (10:41)
[2018-03-31] MEDS ORDERED: DEXTROSE 5%-WATER - 50 ML IVPB ONE (10:41)
[2018-03-31] MEDS: BACITRACIN 15 GM TUBE TOPICAL OINTMENT TP SCH (10:43)
[2018-03-31] MEDS: CEFTRIAXONE 1 GM in DEXTROSE 5%-WATER - 50 ML IVPB SCH (10:43)
--- NOTE | 2018-03-31 12:42 | PN ---
Progress Note, POTATO PICKER - Note Progress Note: Selected Entries 03/29/18 03/29/18 03/29/18 06:00 10:00 12:06 Breakfast 75% Lunch Temperature 98.2 F 98.3 F 03/29/18 15:01 Breakfast Lunch 50% Temperature 98.1 F Laboratory Tests 03/29/18 08:00 WBC 8.1 RBC 2.86 L Hgb 8.1 L Hct 24.5 L Selected Entries 03/30/18 03/30/18 03/30/18 06:21 09:00 10:41 Breakfast 75% Lunch Supper Temperature Pulse Rate 79 76 03/30/18 03/30/18 03/30/18 14:39 16:30 18:30 Breakfast Lunch 75% Supper 50% Temperature Pulse Rate 86 90 03/30/18 03/31/18 22:00 06:18 Breakfast Lunch Supper Temperature 98.5 F Pulse Rate 90 Laboratory Tests 03/30/18 06:30 WBC 6.2 Appreciate ENT f/u. Speech normal/ swallowing seems intact. Pt still on non rebreather. It was off during lunch. No SOB noted. Pt on Puree/honey thick liquid, which she dislikes. 3 oz water test (-). Swallow onset mildly delayed but overtly brisk. Suggest trial of Soft diet with chopped meat, tuna, egg salad, ch salad, and thin liquids.
--- NOTE | 2018-03-31 12:49 | PN ---
Progress Note (short form) - Note Progress Note: no bleeding no distress Vital Signs - 24 hr 03/30/18 03/30/18 03/30/18 14:39 16:30 21:00 Temperature 97.8 F 97.7 F Pulse Rate 86 90 Respiratory 20 18 Rate Blood Pressure 126/62 128/69 O2 Sat by Pulse 100 Oximetry (%) 03/30/18 03/31/18 22:00 06:18 Temperature 97.9 F 98.5 F Pulse Rate 90 88 Respiratory 18 18 Rate Blood Pressure 130/60 124/64 O2 Sat by Pulse Oximetry (%) Current Medications Generic Name Dose Route Start Last Admin Trade Name Freq PRN Reason Stop Dose Admin Bacitracin 1 applic 03/25/18 11:45 03/31/18 10:43 Bacitracin - TP 1 applic DAILY AMY Administration Ceftriaxone Sodium 1 gm/ 50 mls @ 100 mls/hr 03/28/18 14:30 03/31/18 10:43 Dextrose IVPB 100 mls/hr DAILY AMY Administration Sodium Chloride 2 spray 03/28/18 13:34 [place] Nasal [place] - NS BID PRN NASAL CONGESTION S1 S2 RRR Nose-- left nostril-- rhinorocket - no oozing Lungs clear Abd- soft, NT edema+ PLAN Monitor CBC humidified O2 continue with meds hold off anticoagulation on SCD cbc today-- will decide to restart AC or not Problem List - Problems (1) Epistaxis Code(s): R04.0 - EPISTAXIS (2) Hip fracture Code(s): S72.009A - FRACTURE OF UNSP PART OF NECK OF UNSP FEMUR, INIT Qualifiers: Laterality: right (3) Hypoxia Code(s): R09.02 - HYPOXEMIA
[2018-03-31 13:11] LABS: HEMATOCRIT 24.6 % (32.4-45.2); HEMOGLOBIN 8.5 GM/dL (10.7-15.3); MCH 29.4 pg (25.7-33.7); MCHC 34.5 g/dl (32.0-36.0); MEAN CELL VOLUME 85.1 fl (80-96); MEAN PLT VOLUME 9.5 fl (7.5-11.1); PLATELET COUNT 234 K/MM3 (134-434); RBC 2.89 M/mm3 (3.60-5.2); RDW 14.6 % (11.6-15.6); WHITE BLOOD COUNT 6.5 K/mm3 (4.0-10.0)
--- NOTE | 2018-03-31 18:55 | PN ---
Progress Note (short form) - Note Progress Note: ENT per nursing staff transfusion not considered since Hgb >7.0 no nasal bleeding PE NAD nasal packing removed left nostril, no bleeding thick mucus, skin irritation left ala Impression: epistaxis, resolved anemia from acute blood loss hx DVT, to resume anticoagulation s/p repair of hip fracture Recommend: nasal saline spray bid each nostril bacitracin to left nasal ala bid to office after discharge for outpatient follow-up Mamadou Washington MD FACS Problem List - Problems (1) Epistaxis Code(s): R04.0 - EPISTAXIS
--- NOTE | 2018-03-31 23:24 | HOSP ---
Subjective - Review of Symptoms Events since last encounter: Hospitalist Encounter Notified by Director Educational [employer] Hospitalist that the RN reports the patient has an Spo2 80's Subjective: Arrived to bedside, patient is alert, awake and oriented, daughter at bedside. Patient is on a NRB, with non-labored breathing, Spo2 97%. Patient has no complaints. PE performed see EMR Last Vital Signs Temp Pulse Resp BP Pulse Ox 99.1 F 87 18 115/53 L 100 03/31/18 22:00 03/31/18 22:00 03/31/18 22:00 03/31/18 22:00 03/31/18 09:00 Plan: ABG O2 Continue with current regimen Physical Examination Vital Signs: Vital Signs Temperature 97.4 F L 03/31/18 16:30 Pulse Rate 88 03/31/18 16:30 Respiratory Rate 18 03/31/18 16:30 Blood Pressure 128/66 03/31/18 16:30 O2 Sat by Pulse Oximetry (%) 100 03/31/18 09:00 Constitutional: Yes: Well Nourished, No Distress, Calm Eyes: Yes: WNL, Conjunctiva Clear, PERRL HENT: Yes: WNL, Atraumatic, Normocephalic Neck: Yes: WNL, Supple, Trachea Midline Cardiovascular: Yes: WNL, Regular Rate and Rhythm, S1, S2 Respiratory: Yes: WNL, Regular, CTA Bilaterally, Other (NRB) Gastrointestinal: Yes: WNL, Normal Bowel Sounds, Soft Renal/: Yes: WNL Breast(s): Yes: WNL Musculoskeletal: Yes: Other (right hip TN to palpation) Extremities: Yes: WNL Edema: No Peripheral Pulses WNL: Yes Wound/Incision: Yes: Dressing Dry and Intact Neurological: Yes: WNL, Alert, Oriented ...Motor Strength: WNL Psychiatric: Yes: WNL, Alert, Oriented Labs: CBC, BMP 03/31/18 12:15 03/28/18 06:15 Hospitalist Encounter Outcome: ABG- PO2- 287, d/cd NRB, ordered 2LNC Will continue to monitor RN to inform PMD of overnight events
[2018-03-31 23:29] LABS: ARTERIAL BLOOD GAS BASE EXCESS 5.7 meq/l (-2-2); ARTERIAL BLOOD GAS PCO2 43.1 mmHg (35-45); ARTERIAL BLOOD GAS pH 7.45 (7.35-7.45)
[2018-04-01] MEDS ORDERED: DEXTROSE 5%-WATER - 50 ML IVPB ONE (09:57)
[2018-04-01] MEDS ORDERED: cefTRIAXone SODIUM 1 GM VIAL ONE (09:57)
[2018-04-01] MEDS: CEFTRIAXONE 1 GM in DEXTROSE 5%-WATER - 50 ML IVPB SCH (10:00)
[2018-04-01] MEDS: BACITRACIN 15 GM TUBE TOPICAL OINTMENT TP SCH (10:12)
[2018-04-01] MEDS: APIXABAN 2.5 MG TABLET PO SCH ×2 (11:07→22:33)
--- NOTE | 2018-04-01 12:05 | PN ---
Progress Note (short form) - Note Progress Note: no bleeding no distress rhinorocket removed Vital Signs - 24 hr 03/31/18 03/31/18 03/31/18 15:20 16:30 21:00 Temperature 97.8 F 97.4 F L Pulse Rate 85 88 Respiratory 18 18 Rate Blood Pressure 128/61 128/66 O2 Sat by Pulse 94 L Oximetry (%) 03/31/18 04/01/18 22:00 06:00 Temperature 99.1 F 98.2 F Pulse Rate 87 82 Respiratory 18 18 Rate Blood Pressure 115/53 L 131/69 O2 Sat by Pulse Oximetry (%) Current Medications Generic Name Dose Route Start Last Admin Trade Name Freq PRN Reason Stop Dose Admin Apixaban 2.5 mg 04/01/18 10:15 04/01/18 11:07 Eliquis - PO 2.5 mg BID AMY Administration Bacitracin 1 applic 03/25/18 11:45 04/01/18 10:12 Bacitracin - TP 1 applic DAILY AMY Administration Ceftriaxone Sodium 1 gm/ 50 mls @ 100 mls/hr 03/28/18 14:30 04/01/18 10:00 Dextrose IVPB 100 mls/hr DAILY AMY Administration Sodium Chloride 2 spray 03/28/18 13:34 04/01/18 10:02 [place] Nasal [place] - NS 2 spray BID PRN Administration NASAL CONGESTION Laboratory Results - last 24 hr 03/31/18 03/31/18 12:15 23:15 WBC 6.5 RBC 2.89 L Hgb 8.5 L Hct 24.6 L MCV 85.1 MCH 29.4 MCHC 34.5 RDW 14.6 Plt Count 234 MPV 9.5 Puncture Site Right radial ABG pH 7.45 ABG pCO2 at Pt Temp 43.1 ABG pO2 at Pt Temp 287.0 H* ABG HCO3 29.7 H ABG O2 Sat (Measured) 100.0 H* ABG O2 Content 11.6 L ABG Base Excess 5.7 H Yann Test No Result Required. O2 Delivery Device Nrb mask Oxygen Flow Rate 100% S1 S2 RRR Nose-- left nostril- no oozing Lungs clear Abd- soft, NT edema+ PLAN Monitor CBC humidified O2 continue with meds start Eliquis today on SCD Problem List - Problems (1) Epistaxis Code(s): R04.0 - EPISTAXIS (2) Hip fracture Code(s): S72.009A - FRACTURE OF UNSP PART OF NECK OF UNSP FEMUR, INIT Qualifiers: Laterality: right (3) Hypoxia Code(s): R09.02 - HYPOXEMIA
--- NOTE | 2018-04-01 12:51 | PN ---
Progress Note, PRESS SECRETARY - Note Progress Note: Selected Entries 04/01/18 04/01/18 04/01/18 06:00 10:00 11:49 Breakfast 75% Temperature 98.2 F 98.0 F Laboratory Tests 03/31/18 03/31/18 12:15 23:15 WBC 6.5 ABG pO2 at Pt Temp 287.0 H* ABG O2 Sat (Measured) 100.0 H* Awake, verbal, OOB. Pt looks much better, on NC, eating OOB reg diet and thin liquids. Speech production intact. Advance to reg diet/thin liquids. Monitor tolerance.
[2018-04-01 15:53] LABS: HEMATOCRIT 25.9 % (32.4-45.2); HEMOGLOBIN 8.5 GM/dL (10.7-15.3); MCH 28.5 pg (25.7-33.7); MCHC 32.8 g/dl (32.0-36.0); MEAN CELL VOLUME 86.8 fl (80-96); MEAN PLT VOLUME 9.4 fl (7.5-11.1); PLATELET COUNT 193 K/MM3 (134-434); RBC 2.98 M/mm3 (3.60-5.2); RDW 14.6 % (11.6-15.6); WHITE BLOOD COUNT 7.2 K/mm3 (4.0-10.0)
[2018-04-02 07:28] LABS: HEMATOCRIT 25.4 % (32.4-45.2); HEMOGLOBIN 8.3 GM/dL (10.7-15.3); MCH 28.1 pg (25.7-33.7); MCHC 32.8 g/dl (32.0-36.0); MEAN CELL VOLUME 85.7 fl (80-96); MEAN PLT VOLUME 9.1 fl (7.5-11.1); PLATELET COUNT 192 K/MM3 (134-434); RBC 2.96 M/mm3 (3.60-5.2); RDW 14.9 % (11.6-15.6); WHITE BLOOD COUNT 5.9 K/mm3 (4.0-10.0)
--- NOTE | 2018-04-02 08:20 | PN ---
Progress Note (short form) - Note Progress Note: ENT no further nasal bleeding has started back on anticoagulation for hx DVT awaiting test results PE NAD no nasal bleeding, awake alert, comfortable, on nasal O2 Impression epistaxis, resolved, no further bleeding after packing removal anticoagulation in progress Recommend: continue nasal saline spray monitor for bleeding follow-up in office after discharge Mamadou Washington MD FACS Problem List - Problems (1) Epistaxis Code(s): R04.0 - EPISTAXIS
[2018-04-02] MEDS ORDERED: PT OWN MED DRAWER 7, Y5N ONE (09:49)
[2018-04-02] MEDS: BACITRACIN 15 GM TUBE TOPICAL OINTMENT TP SCH (10:09)
[2018-04-02] MEDS: APIXABAN 2.5 MG TABLET PO SCH (10:11)
[2018-04-02] MEDS: CEFTRIAXONE 1 GM in DEXTROSE 5%-WATER - 50 ML IVPB SCH (11:12)
--- NOTE | 2018-04-02 12:59 | DS ---
Physical Examination Vital Signs: Vital Signs Temperature 98 F 04/02/18 10:00 Pulse Rate 89 04/02/18 10:00 Respiratory Rate 20 04/02/18 10:00 Blood Pressure 133/63 04/02/18 10:00 O2 Sat by Pulse Oximetry (%) 94 L 04/01/18 21:00 Constitutional: Yes: No Distress, Calm Cardiovascular: Yes: Regular Rate and Rhythm Respiratory: Yes: CTA Bilaterally Gastrointestinal: Yes: Normal Bowel Sounds, Soft. No: Tenderness Edema: No Labs: CBC, BMP 04/02/18 06:00 03/28/18 06:15 Discharge Summary Reason For Visit: HYPOXIA,SEPSIS Current Active Problems DVT (deep venous thrombosis) (Acute) Epistaxis (Acute) Hip fracture (Acute) Hypoxia (Acute) Sepsis (Acute) Hospital Course: Pt admitted for epistaxis Lactate was elevated due to Metformin - which was dc Rhinorocket was palced Xarelto discontinued CBC Stable seen by ENT Rhinorocket removed 2 days ago-- no bleeding Eliquis 2.5mg BID started-- not drop in HB, No bleeding pt stable for dc Was on IV ceftriaxone for sinusitis -- completed antibiotics Condition: Improved - Instructions Diet, Activity, Other Instructions: Humidified oxygen , ocean nasal spray Referrals: Lisa Camara [Primary Care Provider] - Disposition: CUSTODIAL FACILITY - Home Medications Comprehensive Discharge Medication List: Ambulatory Orders Acetaminophen [Tylenol] 650 mg PO Q6H PRN 03/24/18 Amlodipine Besylate [Norvasc -] 10 mg PO DAILY 03/24/18 Ascorbic Acid [Vitamin C] 500 mg PO DAILY 03/24/18 Calcium Carbonate/Vitamin D3 [Calcium 500 + Vit D 200 Caplet] 1 each PO DAILY Docusate Sodium [Colace] 300 mg PO HS 03/24/18 Losartan Potassium [Cozaar] 100 mg PO DAILY 03/24/18 Magnesium Hydroxide [Milk of Magnesia] 302 ml PO DAILY PRN 03/24/18 Multivitamins [Tab-A-Vit -] 1 tab PO DAILY 03/24/18 Oxycodone HCl/Acetaminophen [Percocet 5-325 mg Tablet] 1 tab PO Q4H PRN Rivaroxaban [Xarelto -] 20 mg PO DAILY 03/24/18 Sennosides [Senna] 8.6 mg PO HS 03/24/18 Silver Sulfadiazine 1% Top Cr [Silvadene -] 1 applic TP BID 03/24/18 Simvastatin [Zocor -] 20 mg PO HS 03/24/18 Tramadol HCl 50 mg PO Q6H PRN 03/24/18 Zinc Sulfate [Zinc-220] 220 mg PO DAILY 03/24/18 metFORMIN HCL [Glucophage -] 850 mg PO DAILY 03/24/18
[2018-04-02 15:59] VITALS: BP 140/71; PULSE 88; TEMP 97.6
== END 2018-04-02 17:00 | DRG 813 ==
LOC: JER 14:58 → JERBED 19:59 → J8W 03-25 03:53
PROVIDERS: ADMIT Internal Medicine; ATTEND Internal Medicine
PROC: 2Y41X5Z Packing of Nasal Region using Packing Material (ICD-10-PCS; principal; 2018-03-24)
DX: D68.32 Hemorrhagic disorder due to extrinsic circulating anticoagulants (principal); E87.2 Acidosis; D62 Acute posthemorrhagic anemia; I10 Essential (primary) hypertension; E78.5 Hyperlipidemia, unspecified; E11.9 Type 2 diabetes mellitus without complications; I95.9 Hypotension, unspecified; R00.0 Tachycardia, unspecified; R09.02 Hypoxemia; E88.09 Other disorders of plasma-protein metabolism, not elsewhere classified; J32.9 Chronic sinusitis, unspecified; T45.515A Adverse effect of anticoagulants, initial encounter; Z86.718 Personal history of other venous thrombosis and embolism
CPT/HCPCS: 36415; 36600; 71045-TC-FY; 71275-TC; 76700-TC; 80048; 80053; 81003; 82550; 82803; 82962; 83036; 83605; 83735; 83880; 84100; 84484; 85025; 85027; 85610; 86850; 86900; 86901; 87040; 87086; 93005; 93010; 93970-TC; 97116-GP; 97162-GP; 99283-25; J0131; J7030